=== PATIENT | female | born 1980 | race Caucasian/White ===

== ENCOUNTER 2020-11-23 11:18 | Emergency (ER) | payer OTHER, SELFPAY ==
[2020-11-23 11:27] VITALS: BP 138/94; PULSE 111; RESP 16; TEMP 36.4; O2SAT 100
--- NOTE | 2020-11-23 11:29 | ECG_ITS ---
Measurements Intervals [place] Rate: 100 P: 86 CT: 140 QRS: 86 QRSD: 81 T: 44 QT: 337 QTc: 436 Interpretive Statements SINUS TACHYCARDIA POSSIBLE RIGHT ATRIAL ENLARGEMENT POSSIBLE LEFT ATRIAL ENLARGEMENT BORDERLINE ST-T WAVE ABNORMALITY- DIFFUSE LEADS BORDERLINE ECG Electronically Signed On 11-23-2020 11:41:46 CDT by Warner Bustillos D.O.
[2020-11-23 11:38] LABS: Basophils Absolute Auto 0.1 K/mm3 (0.0-0.1); Eosinophils Absolute Auto 0.1 K/mm3 (0-0.3); Eosinophils Percent Auto 1.5 % (0-4.4); Hematocrit 43.9 % (37.0-47.0); Hemoglobin 14.7 g/dL (12.0-15.0); Immature Granulocyte Absolute 0.01 K/mm3 (0.00-0.031); Immature Granulocyte Percent A 0.2 % (0-0.5); Lymphocytes Absolute Auto 1.73 K/mm3 (0.9-3.2); Lymphocytes Percent Auto 28.3 % (18.3-44.2); Mean Corpuscular HGB Conc 33.5 g/dl (32-36); Mean Corpuscular Hemoglobin 28.6 pg (26-34); Mean Corpuscular Volume 85.4 fl (80-100); Mean Platelet Volume 9.2 fl (7.4-10.4); Monocytes Absolute Auto 0.3 K/mm3 (0.1-0.6); Monocytes Percent Auto 5.4 % (2.6-8.5); Neutrophils Absolute Auto 3.9 K/mm3 (1.3-6.7); Neutrophils Percent Auto 63.6 % (45.5-73.1); Platelet Count Result 339 k/mm3 (150-375); Red Blood Count 5.14 M/mm3 (4.2-5.4); Red Cell Distribution Width 15.4 % (11.5-14.5); White Blood Count 6.1 K/mm3 (4.5-10.0)
[2020-11-23 11:50] LABS: Alanine Aminotransferase 14 U/L (4-35); Albumin Level 5.3 g/dL (3.5-5.1); Alkaline Phosphatase 61 U/L (38-126); Anion Gap 14 mmol/L (8-16); Aspartate Amino Transferase 22 U/L (14-36); Bilirubin,Total 0.2 mg/dL (0.2-1.3); Blood Urea Nitrogen 7 mg/dL (7-17); Calcium 10.1 mg/dL (8.4-10.2); Carbon Dioxide 21 mmol/L (22-30); Chloride 100 mmol/L (98-107); Estimated CRCL calculation 97 ml/min; Estimated Glomerular Filt Rate > 60; Glucose 122 mg/dL (65-110); Potassium 3.7 mmol/L (3.4-5.0); Sodium 135 mmol/L (137-145)
[2020-11-23 15:22] VITALS: BP 154/103; PULSE 98; RESP 14; O2SAT 99
--- NOTE | 2020-11-23 15:51 | ED.WEAKNESS ---
HPI - Weakness General Chief complaint: Weakness Stated complaint: heart palpitations, weak Time Seen by Provider: 11/23/20 15:41 History of Present Illness HPI Narrative: 40 yo female presents to the ED c/o weakness. She reports that for the past 2 days she has had intermittent leg weakness and dizziness. SHe has also noted racing heart rate and waves of heat over her body. No nausea, vomiting, diarrhea, fever, CP, Cough, congestion SOB. Related Data Allergies Allergy/AdvReac Type Severity Reaction Status Date / Time No Known Allergies Allergy Unverified 11/02/15 16:17 Review of Systems Review of Systems: All systems reviewed & are unremarkable except as noted in HPI and below PMFSH Social History Social History (Updated 11/23/20 @ 15:54 by Don Beal MD) Other substance usage details: vaping Exam Const: General: healthy appearing, no acute distress and alert Orientation/consciousness: patient oriented x3 HENMT: Head: normal to inspection Neck: Neck: normal visual inspection Resp: Effort & Inspection: normal respiratory effort Auscultation: clear to auscultation bilaterally, no rales, no rhonchi and no wheezes Cardio: Jugular venous distension: no JVD Rate: tachycardic Rhythm: regular rhythm Heart sounds: no murmurs GI: Inspection: non-distended GI Palp: Yes Soft to palpation and No Tenderness to palpation present (GI) Skin: General skin exam: normal color Neuro: General: patient oriented x3, moves all extremities and CN's II-XI intact bilaterally Speech: normal speech Extrem: General: normal to inspection and no edema Psych: Appearance: well kempt Affect: normal affect Course Vital Signs Vital signs: Vital Signs Temperature 36.4 C 11/23/20 11:27 Pulse Rate 111 H 11/23/20 11:27 Respiratory Rate 16 11/23/20 11:27 Blood Pressure 138/94 H 11/23/20 11:27 Pulse Oximetry 100 11/23/20 11:27 Temperature 36.4 C 11/23/20 11:27 Pulse Rate 80 11/23/20 17:45 Respiratory Rate 14 11/23/20 17:45 Blood Pressure 124/79 11/23/20 17:45 Pulse Oximetry 99 11/23/20 17:45 MDM - Weakness Differential Diagnosis Differential diagnosis: Likely anemia and dehydration Medical Records Attestation: I reviewed the patient's medical records. Lab Data Attestation: I reviewed the patient's lab results. Result diagrams: 11/23/20 11:31 11/23/20 11:31 Labs: Lab Results 11/23/20 11/23/20 11/23/20 Range/Units 11:31 11:31 15:24 WBC 6.1 (4.5-10.0) K/mm3 RBC 5.14 (4.2-5.4) M/mm3 Hgb 14.7 (12.0-15.0) g/dL Hct 43.9 (37.0-47.0) % MCV 85.4 (80-100) fl MCH 28.6 (26-34) pg MCHC 33.5 (32-36) g/dl RDW 15.4 H (11.5-14.5) % Plt Count 339 (150-375) k/mm3 MPV 9.2 (7.4-10.4) fl Immature Gran % (Auto) 0.2 (0-0.5) % Neut % (Auto) 63.6 (45.5-73.1) % Lymph % (Auto) 28.3 (18.3-44.2) % [place] % (Auto) 5.4 (2.6-8.5) % Eos % (Auto) 1.5 (0-4.4) % Baso % (Auto) 1.0 (0.2-1.2) % Lymph # (Auto) 1.73 (0.9-3.2) K/mm3 [place] # (Auto) 0.3 (0.1-0.6) K/mm3 Eos # (Auto) 0.1 (0-0.3) K/mm3 Baso # (Auto) 0.1 (0.0-0.1) K/mm3 Abs Immat Gran (auto) 0.01 (0.00-0.031) K/mm3 Absolute Neuts (auto) 3.9 (1.3-6.7) K/mm3 Absolute Nucleated RBC 0.0 (0.0-0.012) K/mm3 Nucleated RBC % 0.0 (0.0-0.2) % Sodium 135 L (137-145) mmol/L Potassium 3.7 (3.4-5.0) mmol/L Chloride 100 (98-107) mmol/L Carbon Dioxide 21 L (22-30) mmol/L Anion Gap 14 (8-16) mmol/L BUN 7 (7-17) mg/dL Creatinine 0.50 L (0.7-1.0) mg/dL Estim Creat Clear Calc 97 ml/min Estimated GFR > 60 (59 - ) Glucose 122 H (65-110) mg/dL Calcium 10.1 (8.4-10.2) mg/dL Total Bilirubin 0.2 (0.2-1.3) mg/dL AST 22 (14-36) U/L ALT 14 (4-35) U/L Alkaline Phosphatase 61 (38-126) U/L Total Protein 9.0 H (6.3-8.2) g/dL Albumin 5.3 H (3.5-5.1) g/dL U
[2020-11-23] MEDS: SODIUM CHLORIDE 0.9% IV 1,000 ML 999 ML IV CONT (16:06)
[2020-11-23 17:05] VITALS: PULSE 84
[2020-11-23 17:06] LABS: Add Urine Microscopic? YES; Appearance Urine Clear (Clear); Bilirubin Urine Negative (Negative); Blood Urine Negative (Negative); Color Urine Colorless (Yellow); Glucose Urine UA Negative (Negative); Ketones Urine 1+ mg/dL (Negative); Leukocyte Esterase Ur Negative LEU/UL (Negative); Nitrate Urine Negative (Negative); Protein Urine Negative (Negative); Specific Grav Ur 1.004 (1.001-1.035); Urobilinogen Urine Negative mg/dL (<2.0)
[2020-11-23 17:07] LABS: WBC Urine 0-3 /hpf
[2020-11-23 17:19] VITALS: PULSE 90; RESP 14; O2SAT 100
[2020-11-23 17:30] VITALS: PULSE 86; RESP 15; O2SAT 100
[2020-11-23 17:45] VITALS: BP 124/79; PULSE 80; RESP 14; O2SAT 99
== END 2020-11-23 17:46 | disposition home or self-care (01) ==
PROVIDERS: Family Medicine; Emergency Provider Emergency Medicine; PCP Family Medicine
DX: R53.81 Other malaise (principal); R53.83 Other fatigue; F17.290 Nicotine dependence, other tobacco product, uncomplicated; R00.0 Tachycardia, unspecified; R94.31 Abnormal electrocardiogram [ECG] [EKG]
CPT/HCPCS: 36415; 80053; 81001; 85025; 93005; 96360; 99283; J7030

== ENCOUNTER → 2020-12-03 09:57 | Outpatient (CLI) | payer OTHER, SELFPAY ==
--- NOTE | ~2020-12-03 | XR_ITS ---
EXAMINATION: XR chest 2V DATE: 12/03/2020 10:43 INDICATION: Other malaise, palpitations, anemia TECHNIQUE: PA and lateral views of the chest are obtained. COMPARISON: None available FINDINGS: The lungs are free of acute opacities. There is no pleural effusion or pneumothorax. The ca rdiomediastinal silhouette is normal. The visualized bones and soft tissues are unremarkable. IMPRESSION: 1. No acute cardiopulmonary abnormality. Reviewed, dictated and finalized at location A.
== END ==
PROVIDERS: PCP Family Medicine; Visit Provider Family Medicine
DX: R10.9 Unspecified abdominal pain (principal); D64.9 Anemia, unspecified; R00.2 Palpitations; R53.81 Other malaise
CPT/HCPCS: 71046

== ENCOUNTER 2020-12-09 22:01 | Emergency (ER) | payer OTHER, SELFPAY ==
[2020-12-09 22:14] VITALS: BP 129/81; PULSE 94; RESP 18; TEMP 36.6; O2SAT 100
--- NOTE | 2020-12-09 22:14 | ECG_ITS ---
Measurements Intervals [place] Rate: 92 P: 84 UT: 148 QRS: 76 QRSD: 77 T: 79 QT: 328 QTc: 407 Interpretive Statements SINUS RHYTHM LOW QRS VOLTAGE IN PRECORDIAL LEADS BORDERLINE T WAVE ABNORMALITY- DIFFUSE LEADS BORDERLINE ECG Electronically Signed On 12-10-2020 6:28:10 CDT by Warner Bustillos D.O.
[2020-12-09 23:06] LABS: Alanine Aminotransferase 13 U/L (4-35); Alkaline Phosphatase 45 U/L (38-126); Anion Gap 10 mmol/L (8-16); Aspartate Amino Transferase 21 U/L (14-36); Bilirubin,Total 0.2 mg/dL (0.2-1.3); Blood Urea Nitrogen 13 mg/dL (7-17); Calcium 9.6 mg/dL (8.4-10.2); Carbon Dioxide 25 mmol/L (22-30); Chloride 104 mmol/L (98-107); Estimated CRCL calculation 71 ml/min; Estimated Glomerular Filt Rate > 60; Glucose 110 mg/dL (65-110); Lipase 191 U/L (23-300); Potassium 3.7 mmol/L (3.4-5.0); Sodium 139 mmol/L (137-145)
[2020-12-09 23:12] LABS: Basophils Percent Auto 0.5 % (0.2-1.2); Eosinophils Absolute Auto 0.2 K/mm3 (0-0.3); Hematocrit 41.5 % (37.0-47.0); Immature Granulocyte Absolute 0.01 K/mm3 (0.00-0.031); Immature Granulocyte Percent A 0.2 % (0-0.5); Lymphocytes Absolute Auto 2.17 K/mm3 (0.9-3.2); Lymphocytes Percent Auto 36.3 % (18.3-44.2); Mean Corpuscular HGB Conc 33.7 g/dl (32-36); Mean Corpuscular Hemoglobin 29.1 pg (26-34); Mean Corpuscular Volume 86.3 fl (80-100); Mean Platelet Volume 9.8 fl (7.4-10.4); Monocytes Absolute Auto 0.5 K/mm3 (0.1-0.6); Platelet Count Result 340 k/mm3 (150-375); Red Blood Count 4.81 M/mm3 (4.2-5.4); Red Cell Distribution Width 14.4 % (11.5-14.5)
[2020-12-09 23:23] LABS: Add Urine Microscopic? YES; Appearance Urine Clear (Clear); Bacteria Urine Trace /hpf; Bilirubin Urine Negative (Negative); Blood Urine Negative (Negative); Color Urine Yellow (Yellow); Glucose Urine UA Negative (Negative); Ketones Urine Negative (Negative); Leukocyte Esterase Ur 1+ LEU/UL (Negative); Mucus Urine Few /lpf; Nitrate Urine Negative (Negative); Protein Urine 1+ mg/dL (Negative); Specific Grav Ur 1.023 (1.001-1.035); Squamous Epithelial Cell Urine Moderate /hpf (Few); Urobilinogen Urine Negative mg/dL (<2.0); WBC Urine 0-3 /hpf
--- NOTE | 2020-12-10 01:12 | ED.ABDPAIN ---
HPI - Abdominal Pain General Chief Complaint: Abdominal Pain Stated Complaint: chest and abd pain Time Seen by Provider: 12/10/20 00:49 History of Present Illness HPI narrative: Patient presents with abdominal pain. Patient for which she was seen 1 to 2 weeks ago for generalized fatigue and palpitations. Shortness of palpitations gotten better but she continues to feel fatigued. She seen her primary care doctor reports she had blood work performed and chest x-ray which were all unremarkable per her report. She comes in because over the past several days she noted abdominal pain primarily in the epigastric area that radiates up into her chest so she came in for evaluation. Her vomiting she denies any diarrhea she denies fevers, recent antibiotics. She denies known sick contacts. She denies attempting any medications at home to manage her symptoms. Related Data Home Medications Medication Instructions Recorded Confirmed ferrous sulfate [FeroSul] mg 12/10/20 Allergies Allergy/AdvReac Type Severity Reaction Status Date / Time No Known Allergies Allergy Verified 12/10/20 01:19 Review of Systems Review of Systems: CONSTITUTIONAL: Denies fever, chills, or sweats. EYES: Denies visual changes, redness, or discharge. ENT: Denies rhinorrhea, congestion, sore throat, or otalgia. CARDIOVASCULAR: Denies palpitations, or edema. RESPIRATORY: Denies cough or dyspnea. GASTROINTESTINAL: Denies nausea, vomiting, or diarrhea. GENITOURINARY: Denies dysuria or hematuria. SKIN: Denies rash or itching. MUSCULOSKELETAL: Denies back pain, joint pain, or myalgia. NEUROLOGIC: Denies headache, numbness, dizziness, or weakness. PSYCHIATRIC: Denies anxiety or depression. All systems reviewed & are unremarkable except as noted in HPI and below PMFSH Social History Social History Other substance usage details: vaping Exam Narrative: GENERAL: Well-appearing, well-nourished, and in no acute distress. HEAD: Normocephalic, atraumatic. EYES: PERRLA and EOMI. ENT: Nares clear, no rhinorrhea or epistaxis. Mucous membranes moist. NECK: Supple. No masses. No JVD CHEST: Clear to auscultation. No respiratory distress. No wheezes rales or rhonchi HEART: Regular rate and rhythm. No murmur heard. Normal peripheral pulses. ABDOMEN: Soft, nontender, nondistended, normal active bowel sounds. Unable to reproduce pain on exam EXTREMITIES: Normal range of motion. No edema. SKIN: Warm, dry, no rash. NEURO: No focal deficits. Alert and oriented x3. PSYCH: Normal mood and affect. Course Reevaluation(s) Reevaluation #1: Patient resting comfortably patient reports feeling improved after GI cocktail. Labs reviewed with patient. Patient comfortable with the outpatient plan Date: 12/10/20 Time: 01:49 Vital Signs Vital signs: Vital Signs Temperature 36.6 C 12/09/20 22:14 Pulse Rate 94 12/09/20 22:14 Respiratory Rate 18 12/09/20 22:14 Blood Pressure 129/81 12/09/20 22:14 Pulse Oximetry 100 12/09/20 22:14 Temperature 36.6 C 12/09/20 22:14 Pulse Rate 78 12/10/20 02:15 Respiratory Rate 16 12/10/20 02:15 Blood Pressure 126/73 12/10/20 02:15 Pulse Oximetry 98 12/10/20 02:15 MDM - Abdominal Pain MDM Narrative Medical decision making narrative: H&P as above, vss, pt looks clinically well, exam without acute abdomen, labs of microscopic hematuria with large amount of squamous cells otherwise clinically unremarkable, additional labs/img considered. symptomatic relief available as needed, on reevaluation pt continues to looks clinically well reporting improvement in symptoms. Symptoms remain of unclear etiology may represent viral syndrome. Abdominal pain rating to the chest is likely gastritis/esophagitis there is low concern for ACS, PE, dissection, pancreatitis, cholecystitis. plan to tx/monitor as op w/ pcm f/u findings/plan discussed with pt, pt agree/comfortable with p
[2020-12-10 01:13] VITALS: BP 130/85; PULSE 95; RESP 16; O2SAT 100
[2020-12-10] MEDS: LIDOCAINE HCL 2% VISC SOLN 15 ML UDC 20 ML PO (01:21)
[2020-12-10] MEDS: MAG HYDROX/AL HYDROX/SIMETH 30 ML UDC PO (01:21)
[2020-12-10 02:15] VITALS: BP 126/73; PULSE 78; RESP 16; O2SAT 98
== END 2020-12-10 02:16 | disposition home or self-care (01) ==
PROVIDERS: Family Medicine; Emergency Provider Emergency Medicine; PCP Family Medicine
DX: K29.70 Gastritis, unspecified, without bleeding (principal); F17.290 Nicotine dependence, other tobacco product, uncomplicated
CPT/HCPCS: 36415; 80053; 81001; 81025; 83690; 85025; 93005; 99283; A9270

== ENCOUNTER 2020-12-17 16:14 | Emergency (ER) | payer OTHER, SELFPAY ==
[2020-12-17] VITALS (11 sets, daily range): BP systolic 107–149; BP diastolic 70–91; PULSE 86–107; RESP 11–20; TEMP 36.9; O2SAT 100
--- NOTE | ~2020-12-17 | CT_ITS ---
EXAMINATION: CT brain wo con DATE: 12/17/2020 22:12 INDICATION: Mildly legs, weakness. Paresis. TECHNIQUE: Computed tomography (CT) of the head was performed without intravenous contrast. The mA wa s adjusted according to patient size. Iterative reconstruction technique was employed. Exam dose: 60 5.33 mGy-cm total exam DLP. COMPARISON: 11/28/2013 CT brain FINDINGS: No intracranial mass lesion or hemorrhage or cerebrovascular accident is detected. No midli ne shift or mass effect. Normal ventricular size. Normal hansen-white matter differentiation. No subdural or epidural hematoma. No fracture or bone destruction of the cranial vault. Included mastoid air cells and paranasal sinuses are unremarkable. IMPRESSION: No significant abnormality Reviewed, dictated and finalized at [facility]. Reviewed, dictated and finalized at location A. IMPRESSION: No significant abnormality
--- NOTE | ~2020-12-17 | XR_ITS ---
XR chest 2V DATE: 12/17/2020 16:44 INDICATION: Palpitations. Weakness. Shaky legs. TECHNIQUE: AP and lateral views COMPARISON: 12/03/2020 2 view chest FINDINGS: Normal heart size. No hilar or mediastinal enlargement. Bilateral hyperinflation. No pulmonary infiltrate or consolidation, pleural effusion or pulmonary vas cular congestion or pneumothorax. Mild thoracic scoliosis. IMPRESSION: Bilateral hyperinflation; no active cardiopulmonary disease Reviewed, dictated and finalized at location A.
--- NOTE | 2020-12-17 16:26 | ECG_ITS ---
Measurements Intervals [place] Rate: 96 P: 79 NC: 136 QRS: 60 QRSD: 85 T: 34 QT: 288 QTc: 364 Interpretive Statements SINUS RHYTHM NONSPECIFIC T-WAVE ABNORMALITY- DIFFUSE LEADS BORDERLINE ECG Electronically Signed On 12-17-2020 16:31:19 CDT by Warner Bustillos D.O.
[2020-12-17 16:46] LABS: Basophils Percent Auto 0.5 % (0.2-1.2); Eosinophils Absolute Auto 0.1 K/mm3 (0-0.3); Eosinophils Percent Auto 0.8 % (0-4.4); Hematocrit 40.1 % (37.0-47.0); Hemoglobin 13.6 g/dL (12.0-15.0); Immature Granulocyte Absolute 0.02 K/mm3 (0.00-0.031); Immature Granulocyte Percent A 0.3 % (0-0.5); Lymphocytes Absolute Auto 2.03 K/mm3 (0.9-3.2); Lymphocytes Percent Auto 33.5 % (18.3-44.2); Mean Corpuscular HGB Conc 33.9 g/dl (32-36); Mean Corpuscular Hemoglobin 29.4 pg (26-34); Mean Corpuscular Volume 86.6 fl (80-100); Mean Platelet Volume 9.4 fl (7.4-10.4); Monocytes Absolute Auto 0.4 K/mm3 (0.1-0.6); Monocytes Percent Auto 5.9 % (2.6-8.5); Neutrophils Absolute Auto 3.6 K/mm3 (1.3-6.7); Platelet Count Result 366 k/mm3 (150-375); Red Blood Count 4.63 M/mm3 (4.2-5.4); Red Cell Distribution Width 14.1 % (11.5-14.5); White Blood Count 6.1 K/mm3 (4.5-10.0)
[2020-12-17 16:55] LABS: INR 0.9; Prothrombin Time 12.4 Seconds (11.1-14.7)
[2020-12-17 16:56] LABS: Partial Thromboplastin Time 26.9 SECONDS (22.3-36.8)
[2020-12-17 16:59] LABS: Anion Gap 13 mmol/L (8-16); Blood Urea Nitrogen 10 mg/dL (7-17); Calcium 9.8 mg/dL (8.4-10.2); Carbon Dioxide 21 mmol/L (22-30); Chloride 104 mmol/L (98-107); Estimated CRCL calculation 82 ml/min; Estimated Glomerular Filt Rate > 60; Glucose 111 mg/dL (65-110); Potassium 3.7 mmol/L (3.4-5.0); Sodium 138 mmol/L (137-145)
[2020-12-17 17:10] LABS: Troponin I < 0.012 ng/mL (0.000-0.034)
--- NOTE | 2020-12-17 21:29 | ED.GENADULT ---
HPI - General Adult General Chief complaint: Weakness Stated complaint: heart pounding Time Seen by Provider: 12/17/20 21:14 History of Present Illness HPI narrative: Patient is a 40-year-old female presents the emergency department with chief complaint of generalized weakness and chest discomfort. The patient reports that about a month ago she was using a vape pen and then had a strange sensation over her entire body patient reports since then she has been having episodes of generalized weakness the reports that she has difficulty even walking. Patient states the symptoms are not worsened by anything nor they improved by anything reports today she had pain in her upper chest that radiated up into her neck. Patient reports the symptoms have improved spontaneously. the patient also reports that she has been having fast heart rate and palpitations since then Related Data Home Medications Medication Instructions Recorded Confirmed ferrous sulfate [FeroSul] mg 12/10/20 Allergies Allergy/AdvReac Type Severity Reaction Status Date / Time No Known Allergies Allergy Verified 12/17/20 20:33 Review of Systems Review of Systems: A 10 system review of systems was completed on the patient and is negative except for what is stated in the HPI. Nursing and ancillary documentation was reviewed. [facility] Social History Social History Other substance usage details: vaping Exam Narrative: GENERAL: Well-appearing, well-nourished, and in no acute distress. HEAD: Normocephalic, atraumatic. EYES: PERRLA and EOMI. ENT: Nares clear, no rhinorrhea or epistaxis. Mucous membranes moist. NECK: Supple. CHEST: Clear to auscultation. No respiratory distress. HEART: Regular rate and rhythm. No murmur heard. Normal peripheral pulses. ABDOMEN: Soft, nontender, nondistended, normal active bowel sounds. EXTREMITIES: Normal range of motion. No edema. SKIN: Warm, dry, no rash. NEURO: No focal deficits. Alert and oriented x3. PSYCH: Normal mood and affect. Course Vital Signs Vital signs: Vital Signs Temperature 36.9 C 12/17/20 16:21 Pulse Rate 107 H 12/17/20 16:21 Respiratory Rate 20 12/17/20 16:21 Blood Pressure 149/91 H 12/17/20 16:21 Pulse Oximetry 100 12/17/20 16:21 Temperature 36.9 C 12/17/20 20:25 Pulse Rate 82 12/18/20 00:45 Respiratory Rate 12 12/18/20 00:45 Blood Pressure 106/72 12/18/20 00:45 Pulse Oximetry 100 12/18/20 00:45 Medical Decision Making Vital Signs Vital Signs: Vital Signs Temperature 36.9 C 12/17/20 16:21 Pulse Rate 107 H 12/17/20 16:21 Respiratory Rate 20 12/17/20 16:21 Blood Pressure 149/91 H 12/17/20 16:21 Pulse Oximetry 100 12/17/20 16:21 Temperature 36.9 C 12/17/20 20:25 Pulse Rate 82 12/18/20 00:45 Respiratory Rate 12 12/18/20 00:45 Blood Pressure 106/72 12/18/20 00:45 Pulse Oximetry 100 12/18/20 00:45 Lab Data Result diagrams: 12/17/20 16:33 12/17/20 16:33 Labs: Lab Results 12/17/20 12/17/20 12/17/20 Range/Units 16:33 16:33 16:33 WBC 6.1 (4.5-10.0) K/mm3 RBC 4.63 (4.2-5.4) M/mm3 Hgb 13.6 (12.0-15.0) g/dL Hct 40.1 (37.0-47.0) % MCV 86.6 (80-100) fl MCH 29.4 (26-34) pg MCHC 33.9 (32-36) g/dl RDW 14.1 (11.5-14.5) % Plt Count 366 (150-375) k/mm3 MPV 9.4 (7.4-10.4) fl Immature Gran % (Auto) 0.3 (0-0.5) % Neut % (Auto) 59.0 (45.5-73.1) % Lymph % (Auto) 33.5 (18.3-44.2) % [place] % (Auto) 5.9 (2.6-8.5) % Eos % (Auto) 0.8 (0-4.4) % Baso % (Auto) 0.5 (0.2-1.2) % Lymph # (Auto) 2.03 (0.9-3.2) K/mm3 [place] # (Auto) 0.4 (0.1-0.6) K/mm3 Eos # (Auto) 0.1 (0-0.3) K/mm3 Baso # (Auto) 0.0 (0.0-0.1) K/mm3 Abs Immat Gran (auto) 0.02 (0.00-0.031) K/mm3 Absolute Neuts (auto) 3.6 (1.3-6.7) K/mm3 Absolute Nucleated RBC 0.0 (0.0-0.012)
[2020-12-17 21:33] LABS: Troponin I < 0.012 ng/mL (0.000-0.034)
--- NOTE | 2020-12-17 21:56 | PC.NURSE ---
Pt to imaging at this time.
[2020-12-17 22:02] LABS: Free T4 Free Thyroxine 1.17 ng/mL (0.78-2.19)
[2020-12-17 22:06] LABS: D Dimer 0.36 ug/mL (<0.48)
[2020-12-17 22:10] LABS: Alanine Aminotransferase 11 U/L (4-35); Albumin Level 4.6 g/dL (3.5-5.1); Alkaline Phosphatase 48 U/L (38-126); Aspartate Amino Transferase 21 U/L (14-36); Bilirubin,Total 0.3 mg/dL (0.2-1.3); Magnesium 2.2 mg/dL (1.6-2.3)
[2020-12-17 22:13] LABS: CRP < 0.5 mg/dL (<1.0)
[2020-12-17 22:22] LABS: Erythrocyte Sedimentation Rate 16 mm/hr (0-20)
[2020-12-17] MEDS: SODIUM CHLORIDE 0.9% IV 1,000 ML 999 ML IV CONT ×2 (22:46→23:33)
[2020-12-18 00:30] VITALS: BP 115/90; PULSE 89; RESP 12; O2SAT 100
[2020-12-18 00:45] VITALS: BP 106/72; PULSE 82; RESP 12; O2SAT 100
[2020-12-18 00:53] LABS: Lactic Acid Reflex 2.5 mmol/L (0.7-2.1)
[2020-12-18 01:05] LABS: Troponin I < 0.012 ng/mL (0.000-0.034)
[2020-12-18 01:37] VITALS: BP 121/83; PULSE 91; RESP 16; O2SAT 100
[2020-12-18 01:51] LABS: Reflex Lactic Acid Yes or No Add Lactic
[2020-12-18 19:38] LABS: SARS-CoV-2 RNA PCR Negative
== END 2020-12-18 01:40 | disposition home or self-care (01) ==
PROVIDERS: Emergency Medicine; Emergency Provider Emergency Medicine; PCP Family Medicine
DX: R53.1 Weakness (principal); Z20.822 Contact with and (suspected) exposure to COVID-19; R07.89 Other chest pain; F17.290 Nicotine dependence, other tobacco product, uncomplicated
CPT/HCPCS: 36415; 70450; 71046; 80048; 80076; 83605; 83735; 84439; 84443; 84484; 85025; 85380; 85610; 85652; 85730; 86140; 93005; 96360; 96361; 99284; C9803; J7030; U0003; U0005

== ENCOUNTER → 2020-12-24 13:01 | Outpatient (CLI) | payer OTHER, SELFPAY ==
--- NOTE | ~2020-12-24 | CT_ITS ---
EXAMINATION: CT abdomen pelvis wo con EXAM DATE: 12/24/2020 13:22 INDICATION: Abdominal pain . Diarrhea and nausea. TECHNIQUE: Spiral CT of the abdomen and pelvis was performed without contrast. Axial, coronal and s agittal images of the abdomen and pelvis were reviewed. The dose-length product (DLP) for this exami nation was 323.00 mGy-cm. The exposure was tailored according to patient size (auto mA exposure cont rol), and iterative reconstruction (ASIR) was used as additional dose reduction technique. There is no prior study for comparison. FINDINGS: The liver, spleen, adrenal glands and pancreas are unremarkable. Gallbladder is unremarkab le. No biliary obstruction. There is no nephrolithiasis or hydronephrosis. The uterus is retrover flaquito and morphologically normal. The bladder is unremarkable. There is no retroperitoneal or pelvic lymphadenopathy. The appendix is not positively visualized. There is no pericecal inflammatory change to suggest appe ndicitis. The stomach and small bowel are unremarkable. There is expected amount of colonic stool. No free intraperitoneal gas. The heart is normal in size. There are no pericardial or pleural e ffusions. The lung bases are unremarkable. The bones are unremarkable. IMPRESSION: 1. Unremarkable CT abdomen pelvis exam. Reviewed, dictated and finalized at location B.
== END ==
PROVIDERS: PCP Family Medicine; Visit Provider Family Medicine
DX: R10.9 Unspecified abdominal pain (principal)
CPT/HCPCS: 74176

== ENCOUNTER 2021-01-26 18:45 | Emergency (ER) | payer OTHER, SELFPAY ==
[2021-01-26 18:49] VITALS: BP 157/96; PULSE 107; RESP 16; TEMP 36.7; O2SAT 99
--- NOTE | 2021-01-26 19:21 | ED.EXTPRO ---
HPI - Extremity Problem General Chief complaint: Extremity Problem,Nontraumatic Stated complaint: muscle weakness, pain spasm Time Seen by Provider: 01/26/21 19:14 Source: patient Mode of arrival: ambulatory Limitations: no limitations History of Present Illness HPI Narrative: Patient is a 40-year-old female complaining of muscle spasms in her whole body especially to arms and the legs started today but it has been going on for the past 9 weeks, has seen her doctor and had multiple tests done including testing for autoimmune diseases. Patient was told that it could be viral in origin. Patient states that she was actually getting better the past week but today the spasms has recurred. Patient denies any headache, dizziness, chest pain, shortness of breath, abdominal pain, nausea, vomiting, diarrhea, urinary symptoms, fever or chills. Patient denies any calf pain or swelling. Related Data Allergies Allergy/AdvReac Type Severity Reaction Status Date / Time No Known Allergies Allergy Verified 01/26/21 18:59 Review of Systems Review of Systems: All systems reviewed & are unremarkable except as noted in HPI and below Constitutional: Constitutional: Denies body ache(s), Denies chills, Denies excessive sweating, Denies fatigue, Denies fever(s), Denies headache(s), Denies lethargy, Denies malaise, Denies weakness and Denies weight loss Eyes: Eyes: Denies blurry vision, Denies change in vision and Denies loss of vision ENT: Denies dizziness, Denies ear discharge, Denies headache(s), Denies lip swelling, Denies epistaxis, Denies nasal congestion, Denies neck pain, Denies throat swelling and Denies tongue swelling Cardiovascular: Cardiovascular: Denies chest pain, Denies chest pain at rest, Denies chest pain with activity, Denies diaphoresis, Denies rapid heart rate, Denies edema, Denies irregular heart rhythm, Denies lightheadedness, Denies palpitations, Denies dyspnea and Denies dyspnea on exertion Respiratory: Respiratory: Denies chest congestion, Denies cough, Denies hemoptysis, Denies dyspnea and Denies dyspnea on exertion Gastrointestinal: Gastrointestinal: Denies abdominal pain, Denies melena, Denies hematochezia, Denies diarrhea, Denies nausea, Denies vomiting and Denies hematemesis Musculoskeletal: Musculoskeletal: Denies abnormal gait, Denies deformity, Denies joint swelling, Denies limited range of motion, Denies neck pain and Denies numbness Neurologic: Denies Abnormal speech present, Denies abnormal gait, Denies confusion, Denies dizziness, Denies headache(s), Denies focal weakness, Denies loss of vision, Denies numbness, Denies Other visual disturbances, Denies Sensory deficit (Neuro) and Denies weakness Psychiatric: Psychiatric: Denies confusion, Denies depression, Denies auditory hallucinations, Denies homicidal ideation and Denies suicidal ideation Endocrine: Endocrine: Denies cold intolerance, Denies excessive sweating, Denies fatigue, Denies heat intolerance and Denies palpitations Hematologic/Lymphatic: Hematologic/Lymphatic: Denies easy bleeding and Denies easy bruising Allergic/Immunologic: Allergic/Immunologic: Denies lip swelling, Denies throat swelling and Denies tongue swelling PMFSH Social History Social History Other substance usage details: vaping Comments Past medical history: None Social history: Vapes, no EtOH or drug use Exam Const: General: cooperative, healthy appearing, comfortable, no acute distress, well developed, alert and awake; No confusion Orientation/consciousness: oriented to person, oriented to place, oriented to time, patient oriented x3 and No confusion Limitations: no limitations HENMT: Head: normal to inspection, normocephalic and atraumatic Ears: hearing grossly normal bilaterally, TM normal on the right and TM normal on the left General nose exam: Normal external nose present, Normal nares present and No nasal discharge presen
[2021-01-26 19:35] LABS: Basophils Percent Auto 0.5 % (0.2-1.2); Eosinophils Absolute Auto 0.1 K/mm3 (0-0.3); Eosinophils Percent Auto 1.4 % (0-4.4); Hematocrit 38.7 % (37.0-47.0); Hemoglobin 13.3 g/dL (12.0-15.0); Immature Granulocyte Absolute 0.01 K/mm3 (0.00-0.031); Immature Granulocyte Percent A 0.1 % (0-0.5); Lymphocytes Absolute Auto 2.38 K/mm3 (0.9-3.2); Lymphocytes Percent Auto 30.7 % (18.3-44.2); Mean Corpuscular HGB Conc 34.4 g/dl (32-36); Mean Corpuscular Hemoglobin 30.2 pg (26-34); Monocytes Absolute Auto 0.5 K/mm3 (0.1-0.6); Monocytes Percent Auto 5.9 % (2.6-8.5); Neutrophils Absolute Auto 4.8 K/mm3 (1.3-6.7); Neutrophils Percent Auto 61.4 % (45.5-73.1); Platelet Count Result 317 k/mm3 (150-375); Red Cell Distribution Width 13.4 % (11.5-14.5); White Blood Count 7.8 K/mm3 (4.5-10.0)
[2021-01-26] MEDS: SODIUM CHLORIDE 0.9% IV 1,000 ML 999 ML IV CONT (19:41)
[2021-01-26 19:53] LABS: Anion Gap 10 mmol/L (8-16); Blood Urea Nitrogen 12 mg/dL (7-17); Calcium 9.8 mg/dL (8.4-10.2); Carbon Dioxide 28 mmol/L (22-30); Chloride 104 mmol/L (98-107); Estimated CRCL calculation 82 ml/min; Estimated Glomerular Filt Rate > 60; Glucose 144 mg/dL (65-110); Potassium 3.2 mmol/L (3.4-5.0); Sodium 142 mmol/L (137-145)
[2021-01-26 20:19] LABS: Creatine Kinase 27 U/L (30-135)
[2021-01-26 20:52] VITALS: BP 125/79; PULSE 95; RESP 16; O2SAT 100
[2021-01-26] MEDS: POTASSIUM CHLORIDE 20 MEQ PACKET (FOR LIQUID) 40 MEQ PO (20:54)
[2021-01-26 21:38] VITALS: BP 131/83; PULSE 85; RESP 16; O2SAT 97
== END 2021-01-26 21:42 | disposition home or self-care (01) ==
PROVIDERS: Emergency Provider Emergency Medicine; PCP Family Medicine
DX: E87.6 Hypokalemia (principal); M62.838 Other muscle spasm; F17.290 Nicotine dependence, other tobacco product, uncomplicated
CPT/HCPCS: 36415; 80048; 82550; 85025; 96360; 99283; A9270; J7030

== ENCOUNTER 2021-02-13 12:49 | Outpatient (CLI) | payer OTHER, SELFPAY ==
[2021-02-13 13:36] LABS: Lactic Acid 1.1 mmol/L (0.7-2.1)
== END 2021-02-13 12:50 | disposition home or self-care (01) ==
PROVIDERS: PCP Family Medicine; Visit Provider Family Medicine
DX: R10.9 Unspecified abdominal pain (principal)
CPT/HCPCS: 36415; 83605

== ENCOUNTER → 2021-02-19 08:23 | Outpatient (CLI) | payer OTHER, SELFPAY ==
--- NOTE | ~2021-02-19 | MMUS_ITS ---
EXAMINATION: MM diagnostic thai BI w darlene, US breast LT limited HISTORY: Left breast pain TECHNIQUE: Craniocaudal, mediolateral, and mediolateral oblique 3-D tomosynthesis images of the breas ts were performed and synthetic 2-D images were generated. CAD analysis was submitted and interpreted . High resolution limited left breast ultrasound was performed. COMPARISON: 02/22/2019 BREAST PARENCHYMAL COMPOSITION: There are scattered areas of fibroglandular density. FINDINGS: MAMMOGRAPHIC FINDINGS: There is no evidence of suspicious mass, calcification, or architectural distortion in either breast to suggest malignancy. There has been no suspicious interval change. No mammographic correlate is connie ntified for the patient's reported left breast pain. ULTRASOUND: There is no evidence of focal abnormal solid or cystic mass in the vicinity of the patient's reported left breast pain. IMPRESSION: 1. No specific mammographic or sonographic correlate is identified for the patient's reported breast pain. Further evaluation at this time should be based on clinical assessment. Continued follow-up phy sical examination is recommended. 2. Recommend routine screening mammography in one year. BI-RADS Category 1: Negative Reviewed, dictated and finalized at location A. [employer] IMPRESSION: 1. No specific mammographic or sonographic correlate is identified for the nat ent's reported breast pain. Further evaluation at this time should be based on clinical assessment. Continued follow-up physical examination is recommended. 2. Recommend routine screening mammography in one year. BI-RADS Category 1: Negative
== END ==
PROVIDERS: PCP Family Medicine; Visit Provider Nurse Practitioner
DX: N64.4 Mastodynia (principal)
CPT/HCPCS: 76642; 77062; 77066; G0279

== ENCOUNTER 2021-10-19 12:42 | Emergency (ER) | payer OTHER, SELFPAY ==
--- NOTE | ~2021-10-19 | XR_ITS ---
Y EXAMINATION: XR chest 2V Exam Date/Time: 10/19/2021 13:50 CDT HISTORY: CHEST PAIN MID CHEST FOR 5 DAYS Comparison: 12/17/2020. RESULT: Lines, tubes, and devices: None. Lungs and pleura: Clear. Cardiomediastinal silhouette: Stable cardiomediastinal silhouette. Other: No acute osseous or upper abdominal finding. IMPRESSION: No acute cardiopulmonary process. Reviewed, dictated and finalized at location [facility].
--- NOTE | 2021-10-19 12:47 | ECG_ITS ---
Measurements Intervals [place] Rate: 100 P: 84 UT: 137 QRS: 75 QRSD: 82 T: 72 QT: 324 QTc: 420 Interpretive Statements SINUS TACHYCARDIA POSSIBLE LEFT ATRIAL ENLARGEMENT BORDERLINE ST-T WAVE ABNORMALITY- DIFFUSE LEADS BORDERLINE ECG Electronically Signed On 10-19-2021 13:08:48 CDT by Warner Bustillos D.O.
[2021-10-19 12:51] VITALS: BP 139/83; PULSE 98; RESP 18; TEMP 36.8; O2SAT 100
[2021-10-19 13:04] LABS: Basophils Percent Auto 0.7 % (0.2-1.2); Eosinophils Percent Auto 0.5 % (0-4.4); Hematocrit 39.9 % (37.0-47.0); Hemoglobin 13.3 g/dL (12.0-15.0); Immature Granulocyte Absolute 0.01 K/mm3 (0.00-0.031); Immature Granulocyte Percent A 0.2 % (0-0.5); Lymphocytes Absolute Auto 1.76 K/mm3 (0.9-3.2); Lymphocytes Percent Auto 31.9 % (18.3-44.2); Mean Corpuscular HGB Conc 33.3 g/dl (32-36); Mean Corpuscular Hemoglobin 29.4 pg (26-34); Mean Corpuscular Volume 88.3 fl (80-100); Mean Platelet Volume 9.1 fl (7.4-10.4); Monocytes Absolute Auto 0.3 K/mm3 (0.1-0.6); Neutrophils Absolute Auto 3.3 K/mm3 (1.3-6.7); Neutrophils Percent Auto 60.7 % (45.5-73.1); Platelet Count Result 325 k/mm3 (150-375); Red Blood Count 4.52 M/mm3 (4.2-5.4); Red Cell Distribution Width 13.2 % (11.5-14.5); White Blood Count 5.5 K/mm3 (4.5-10.0)
[2021-10-19 13:16] LABS: Alanine Aminotransferase 16 U/L (6-35); Alkaline Phosphatase 56 U/L (38-126); Anion Gap 9 mmol/L (8-16); Aspartate Amino Transferase 21 U/L (14-36); Bilirubin,Total 0.4 mg/dL (0.2-1.3); Blood Urea Nitrogen 7 mg/dL (7-17); Calcium 9.2 mg/dL (8.4-10.2); Carbon Dioxide 24 mmol/L (22-30); Chloride 104 mmol/L (98-107); Estimated CRCL calculation 96 ml/min; Estimated Glomerular Filt Rate > 60; Glucose 121 mg/dL (65-110); Lipase 105 U/L (23-300); Potassium 3.5 mmol/L (3.4-5.0); Sodium 137 mmol/L (137-145)
[2021-10-19 13:17] VITALS: BP 133/74; PULSE 102; RESP 15; O2SAT 100
[2021-10-19 13:20] LABS: INR 1.1; Prothrombin Time 13.5 Seconds (11.1-14.7)
[2021-10-19 13:22] LABS: Partial Thromboplastin Time 28.3 SECONDS (22.3-36.8)
[2021-10-19 13:27] LABS: Troponin I < 0.012 ng/mL (0.000-0.034)
[2021-10-19] MEDS: ASPIRIN 81 MG CHEWABLE TABLET 324 MG PO (13:27)
--- NOTE | 2021-10-19 13:57 | ED.CHESTPAIN ---
HPI - Chest Pain General Chief Complaint: Chest Pain Stated Complaint: CHEST PAIN Time Seen by Provider: 10/19/21 13:23 Source: patient and RN notes reviewed Mode of arrival: ambulatory Limitations: no limitations History of Present Illness HPI narrative: 41 years old white female presents with intermittent retrosternal throbbing pain for the last 6 days, usually last for few seconds each time. No aggravating factors, no relieving factors, no radiation. Patient was seen by her family physician recently for the same symptoms and was started on famotidine with some improvement ,today no improvement. 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 No definite diagnosis. Patient complaining of generalized muscle weakness and pain for the last 12 months, currently on physical therapy for 1 month with some improvement. Gabapentin was prescribed by a neurologist. Patient denies any fever, chills, nausea, vomiting, shortness of breath, abdominal pain, urinary symptoms. Related Data Allergies Allergy/AdvReac Type Severity Reaction Status Date / Time No Known Allergies Allergy Verified 01/26/21 18:59 Review of Systems Review of Systems: All systems reviewed & are unremarkable except as noted in HPI and below PMFSH Social History Social History Other substance usage details: vaping Exam Narrative: General appearance: Well-developed, well-nourished Skin: Normal color Head: Normocephalic, nontraumatic Eyes: Clear conjunctiva ENT: Oropharynx normal, ears normal, nose normal Neck: Supple, nontender Chest and respiratory: Airway patent, no respiratory distress, no accessory muscle use Heart: Regular rate/rhythm Abdomen: Soft, nontender, no organomegaly, quiet bowel sounds Vascular: Normal peripheral pulses, normal capillary refill. Musculoskeletal: Normal range of motion, nontender back Neurologic: Alert and oriented ?3, DESIGN MAKER is normal as tested, no gross motor deficit Course Course Emergency Course: Patient work-up today did not show any significant finding to explain patient complain. 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 Patient chest pain could be related to stress or related to what ever causing her general muscle pain and weakness. Esophagitis is a possibility. My plan to refer patient back to her family physician and roll setter for further evaluation. Patient declined to take any day of work. Currently feeling okay and agreed to be discharged. Vital Signs Vital signs: Vital Signs Temperature 36.8 C 10/19/21 12:51 Pulse Rate 98 10/19/21 12:51 Respiratory Rate 18 10/19/21 12:51 Blood Pressure 139/83 10/19/21 12:51 Pulse Oximetry 100 10/19/21 12:51 Oxygen Delivery Room Air 10/19/21 12:51 Temperature 36.8 C 10/19/21 12:51 Pulse Rate 102 H 10/19/21 13:17 Respiratory Rate 15 10/19/21 13:17 Blood Pressure 133/74 10/19/21 13:17 Pulse Oximetry 100 10/19/21 13:17 Oxygen Delivery Room Air 10/19/21 13:17 MDM - Chest Pain Lab Data Result diagrams: 10/19/21 12:59 10/19/21 12:59 Labs: Lab Results 10/19/21 10/19/21 10/19/21 Range/Units 12:59 12:59 12:59 WBC 5.5 (4.5-10.0) K/mm3 RBC 4.52 (4.2-5.4) M/mm3 Hgb 13.3 (12.0-15.0)
[2021-10-19 14:12] VITALS: O2SAT 100
[2021-10-19 14:39] VITALS: BP 105/69; PULSE 85; RESP 14; O2SAT 100
[2021-10-19 14:41] VITALS: PULSE 80
[2021-10-19 14:57] LABS: CRP < 0.5 mg/dL (<1.0)
[2021-10-19 15:38] VITALS: BP 121/68; PULSE 94; RESP 15; O2SAT 98
[2021-10-19 15:45] LABS: Erythrocyte Sedimentation Rate 7 mm/hr (0-20)
== END 2021-10-19 15:44 | disposition home or self-care (01) ==
PROVIDERS: Emergency Medicine; Emergency Provider Emergency Medicine; PCP Family Medicine
DX: R07.89 Other chest pain (principal)
CPT/HCPCS: 36415; 71046; 80053; 83690; 84484; 85025; 85610; 85652; 85730; 86140; 93005; 99284; A9270

== ENCOUNTER 2021-11-03 01:01 | Day surgery (SDC) | payer OTHER, SELFPAY ==
[2021-10-25 15:04] VITALS: BMI 23.8
--- NOTE | 2021-11-02 15:15 | WPDANESEPPF ---
Anes - Initial Pre Proc Eval Procedure: Operation Date: 11/03/21 08:00 Proposed Procedures p Esophagogastroduodenoscopy - Stalin Stringer MD Date/Time: 11/02/21 15:15 Surgeon: Stalin Stringer MD Pre Op Diagnosis: chest pain Patient Data Age: 41 Gender: F Height: 1.57 m Weight: 59 kg Allergies Allergy/AdvReac Type Severity Reaction Status Date / Time No Known Allergies Allergy Verified 11/03/21 06:49 Home Medications Medication Instructions Recorded Confirmed Type omeprazole 40 mg capsule,delayed 40 mg PO DAILY #30 caps 10/22/21 10/25/21 Rx release sucralfate 1 gram tablet (Carafate) 1 g PO ACHS #120 tabs 10/22/21 10/25/21 Rx multivitamin with minerals-folic 1 tablet PO DAILY 10/25/21 10/25/21 History acid 0.4 mg tablet Patient hx anesthesia problems: none Family hx anesthesia problems: none Results Review: All pre-operative results and documents have been reviewed as part of the pre-operative evaluation. [facility] Past Medical History Medical History (Updated 10/22/21 @ 12:24 by Tricia Jacobo APRN) Epigastric pain Globus sensation IBS (irritable bowel syndrome) Irritable bowel syndrome with diarrhea Social History Social History Smoking status: Never smoker Alcohol intake: current Alcohol use details: occasional Substance use type: does not use Other substance usage details: vaping Living arrangements: with family Spiritual care concerns: No Anes - Eval Final PreProcedure Day of Procedure 11/02/21 15:15 Patient weight: normal Heart: regular rate and rhythm Lungs: clear to auscultation and normal air movement Airway: Mallampati scale class II Neurological: alert and oriented Last oral intake: >/= 8 hours ASA classification: II Emergent: no Anesthetic plan: proceed Anesthesia type and monitoring: general GIVS Results Review: All pre-operative results and documents have been reviewed as part of the pre-operative evaluation. Informed Consent: The patient's anesthetic plan and its attendant risks and benefits were discussed with the patient/family/POA. Questions were solicited and answers provided to the satisfaction of the patient/family/POA.
[2021-11-03 06:50] VITALS: BP 117/76; PULSE 97; RESP 20; TEMP 37; O2SAT 100
[2021-11-03] MEDS: LACTATED RINGERS 1,000 ML 150 ML IV CONT (07:15)
--- NOTE | 2021-11-03 07:56 | WPDHPUPDATE1 ---
History and Physical Update Update Date/Time: 11/03/21 07:56 History and Physical has been reviewed, including an updated exam of the patient. There are NO changes in the patient's condition. Risks, benefits, and alternatives have been discussed and questions answered. Patient agrees to proceed with procedure.
[2021-11-03 08:09] VITALS: BP 96/62; PULSE 72; RESP 20; O2SAT 96
[2021-11-03 08:19] VITALS: BP 106/60; PULSE 76; RESP 13; O2SAT 100
[2021-11-03 08:29] VITALS: BP 110/68; PULSE 74; RESP 14; O2SAT 100
== END 2021-11-03 08:39 | disposition home or self-care (01) ==
PROVIDERS: PCP Family Medicine; Visit Provider Internal Medicine Gastroenterology
PROC: 0DJ08ZZ Inspection of Upper Intestinal Tract, Via Natural or Artificial Opening Endoscopic (ICD-10-PCS; CPT 43235; principal; 2021-11-03 08:00)
DX: R07.89 Other chest pain (principal); F45.8 Other somatoform disorders; K58.0 Irritable bowel syndrome with diarrhea; R10.13 Epigastric pain
CPT/HCPCS: 43239; 88305; J2704; J7120

== ENCOUNTER 2021-11-30 07:51 | Outpatient (CLI) | payer OTHER, SELFPAY ==
--- NOTE | ~2021-11-30 | CT_ITS ---
EXAMINATION: CT abdomen pelvis w con DATE: 11/30/2021 08:15 INDICATION: Epigastric abdominal pain (normal upper endoscopy) TECHNIQUE: Computed tomography (CT) of the abdomen and pelvis was performed with 100 CC Omnipaque 350 intravenous contrast. Automated exposure control and iterative reconstruction technique were employe d. Exam dose: 205.51 mGy-cm total exam DLP. COMPARISON: 12/24/2020 CT abdomen pelvis FINDINGS: The lung bases are clear. Normal heart size. No pericardial or pleural effusion. The liver, gallbladder, bile ducts, spleen, pancreas and pancreatic duct are unremarkable. Normal morphology of the adrenal glands. No renal mass lesion or scarring or urinary tract calculus or hydroureteronephrosis. There is promine nt diffuse thickening of the urinary bladder wall, a new finding since 12/24/2020; consider cystitis. Retroverted uterus with multiple rounded areas of hypoattenuation measuring up to 2 cm, likely uterin e fibroids. Normal caliber of the urinary bladder. No intraperitoneal or retroperitoneal or pelvic mass lesion or adenopathy or ascites. No bowel obstruction, bowel wall thickening, pneumatosis or intraperitoneal free air. Included skeletal structures are unremarkable. IMPRESSION: Prominent diffuse thickening of the urinary bladder wall, new since 12/24/2020. Consider cystitis Retroverted uterus with probable fibroids Reviewed, dictated and finalized at [facility]. Reviewed, dictated and finalized at location B. IMPRESSION: Prominent diffuse thickening of the urinary bladder wall, new sinc e 12/24/2020. Consider cystitis Retroverted uterus with probable fibroids
== END 2021-11-30 07:52 | disposition home or self-care (01) ==
LOC: ANHIMG 07:52
PROVIDERS: PCP Family Medicine; Visit Provider Nurse Practitioner
DX: R07.9 Chest pain, unspecified (principal); R10.13 Epigastric pain; R93.41 Abnormal radiologic findings on diagnostic imaging of renal pelvis, ureter, or bladder; N85.4 Malposition of uterus
CPT/HCPCS: 74177; Q9967

== ENCOUNTER 2021-12-08 08:01 | Outpatient (CLI) | payer OTHER, SELFPAY ==
--- NOTE | ~2021-12-08 | NM_ITS ---
EXAMINATION: NM hepatobiliary wo pharm DATE: 12/08/2021 10:30 INDICATION: Epigastric abdominal pain. Atypical chest pain. COMPARISON: CT abdomen and pelvis 11/30/2021 TECHNIQUE: 5 mCi Tc-99m mebrofenin (Choletec) was administered intravenously. Scintigraphic images o f the abdomen were obtained for one hour. Then, the patient drank 8 oz Ensure, and imaging was contin ued for 60 minutes. FINDINGS: There is normal clearance of radiotracer from the blood pool. There is homogeneous tracer u ptake by the liver. Activity progresses to the bowel and gallbladder. Gallbladder ejection fraction (GBEF) was 46%. Note that with this technique, normal GBEF >= 33%. IMPRESSION: 1. Normal hepatobiliary scintigraphy. Reviewed, dictated and finalized at location A.
== END 2021-12-08 08:02 | disposition home or self-care (01) ==
LOC: ANHIMG 08:02
PROVIDERS: PCP Family Medicine; Visit Provider Nurse Practitioner
DX: R10.13 Epigastric pain (principal); R07.89 Other chest pain
CPT/HCPCS: 78226; A9537

== ENCOUNTER → 2022-02-03 08:20 | Outpatient (CLI) | payer OTHER, SELFPAY ==
--- NOTE | ~2022-02-03 | MMUS_ITS ---
EXAMINATION: MM diagnostic thai BI w darlene, US breast BI complete HISTORY: Breast pain. TECHNIQUE: Additional 3-D tomosynthesis images of the breasts were performed and synthetic 2-D images were generated. CAD analysis was submitted and interpreted. High resolution bilateral complete breas t ultrasound was performed. COMPARISON: 02/19/2021 BREAST PARENCHYMAL COMPOSITION: BREAST PARENCHYMAL COMPOSITION: There are scattered areas of fibroglandular density. FINDINGS: MAMMOGRAPHIC FINDINGS: There are no suspicious masses, calcifications or architectural distortion in either breast to sugges t malignancy. ULTRASOUND: Complete bilateral US of all 4 quadrants of the breasts and retroareolar region was reviewed. There a re small bilateral simple cyst in the breasts. No suspicious masses to suggest malignancy. IMPRESSION: 1. No evidence for malignancy in either breast. Benign findings. 2. Routine yearly screening mammogram and regular clinical breast examination are recommended. BI-RADS Category 2: Benign finding(s). Reviewed, dictated and finalized at location A. IMPRESSION: 1. No evidence for malignancy in either breast. Benign findings. 2. Routine yearly screening mammogram and regular clinical breast examination a re recommended. BI-RADS Category 2: Benign finding(s).
== END ==
PROVIDERS: PCP Family Medicine; Visit Provider Nurse Practitioner Family
DX: N64.4 Mastodynia (principal)
CPT/HCPCS: 76641; 77062; 77066; G0279

== ENCOUNTER → 2022-02-04 13:46 | Outpatient (CLI) | payer OTHER, SELFPAY ==
--- NOTE | ~2022-02-04 | US_ITS ---
EXAMINATION: US pelvic complete DATE: 02/04/2022 14:01 INDICATION: Pelvic pain Comparison:01/16/2014 TECHNIQUE: Multiple transabdominal and endovaginal sonographic images of the pelvis performed. FINDINGS: The uterus measures 8.7 x 4.6 x 5.5 cm. The endometrial complex measures 8 mm. The right ovary measures 3.9 x 1.6 x 2.7 cm and the left ovary measures 3.4 x 1.7 x 3.7 cm. There ar e small follicles in each ovary. Normal doppler signal in both ovaries. There is no free fluid in the pelvis. There are no abnormal masses seen on either side. IMPRESSION: 1. Unremarkable pelvic ultrasound. Reviewed, dictated and finalized at location A.
== END ==
PROVIDERS: PCP Family Medicine; Visit Provider Nurse Practitioner
DX: R10.2 Pelvic and perineal pain (principal)
CPT/HCPCS: 76856